=== PATIENT | male | born 1955 ===

== ENCOUNTER 2017-06-30 13:49 | Emergency (ER) | payer OTHER ==
[2017-06-30 13:49] VITALS: BMI 25.0
[2017-06-30 14:12] VITALS: BP 148/82; PULSE 76; RESP 18; TEMP 98.4; O2SAT 100
--- NOTE | 2017-06-30 14:44 | ED PDOC ---
HPI: General Adult Time Seen by Provider: 06/30/17 14:10 Chief Complaint (Nursing): Abnormal Skin Integrity Chief Complaint (Provider): Abnormal skin integrity History Per: Family History/Exam Limitations: language barrier Onset/Duration Of Symptoms: Days (x7-8days) Current Symptoms Are (Timing): Still Present Additional Complaint(s): Deven Hurst presents to the ED accompanied by his for chief complaints of papular lesions diffused to the body. Patients reports she and were traveling to [place] and the [facility] for 7-8 days and lesions spread throughout the body. States patient had 1 before leaving to travel and it got worse during the course of the trip. Associated symptoms include itching of the skin and eyes, along with some back pain, has since resolved. Denies any fever, chills, body aches, vomiting, urinary symptoms, or pain. Of note, patient has a surgical history of a kidney transplant and reports he takes Prednisone for the kidneys and took Benadryl to help with the eyes. PMD: Dr. Juan Daniel Walker. Past Medical History Reviewed: Historical Data, Nursing Documentation, Vital Signs Vital Signs: Last Vital Signs Temp 98.4 F 06/30/17 14:08 Pulse 76 06/30/17 14:08 Resp 18 06/30/17 14:08 BP 148/82 06/30/17 14:08 Pulse Ox 100 06/30/17 15:01 - Medical History PMH: Diabetes, HTN, Hypercholesterolemia, Hyperlipidemia, Pancreatitis, Chronic Kidney Disease (Renal Implant ) Denies: Arthritis, HIV, Rheumatoid Arthritis - Surgical History Surgical History: Cholecystectomy Other surgeries: Kidney transplant. - Family History Family History: States: Unknown Family Hx - Living Arrangements Living Arrangements: With Family - Immunization History Hx Influenza Vaccination: Yes Hx Pneumococcal Vaccination: Yes - Home Medications Home Medications: Ambulatory Orders Medication Instructions Recorded B Complex W-C No.20/Folic Acid 1 cap PO DAILY 09/28/14 [Renal Caps Softgel] Calcium Acetate [Phoslo] 667 mg PO TID 09/28/14 Carvedilol [Coreg] 6.25 mg PO BID 09/28/14 Ergocalciferol 50,000 unit PO Q30D 09/28/14 Insulin Glargine,Hum.rec.anlog 30 unit SC DAILY 09/28/14 [Lantus] Linagliptin [Tradjenta] 5 mg PO DAILY 09/28/14 Lipase/Protease/Amylase [Creon Dr 1 tab PO TID 09/28/14 24,000 Units Capsule] [id number] Ethyl Esters [Lovaza] 1 gm PO BID 09/28/14 Omeprazole 40 mg PO DAILY 09/28/14 Pregabalin [Lyrica] 100 mg PO TID 09/28/14 Sevelamer Carbonate [Renvela] 3 tab PO TID 09/28/14 Simvastatin 40 mg PO HS 09/28/14 ALPRAZolam [Xanax] 1 mg PO TID 04/12/15 Codeine Phosphate/Promethazi 5 ml PO Q6 #80 ml 04/12/15 [Promethazine with Codeine 10 mg/5 ml-6.25 mg/] Guaifenesin/Pseudoephedrne HCl 1 tab PO DAILY PRN #30 ter 04/12/15 [Mucinex D ER Tablet] Loperamide Hydrochloride 25 mg PO DAILY 04/12/15 [Loperamide HCl] Mupirocin [Centany] 2 unit TP BID #30 gm 06/30/17 - Allergies Allergies/Adverse Reactions: Allergies Allergy/AdvReac Type Severity Reaction Status Date / Time No Known Allergies Allergy Verified 07/11/16 11:22 Review of Systems ROS Statement: Except As Marked, All Systems Reviewed And Found Negative Constitutional: Negative for: Fever, Chills Eyes: Negative for: Pain Gastrointestinal: Negative for: Vomiting Genitourinary Male: Negative for: Other (No Urinary symptoms.) Musculoskeletal: Positive for: Back Pain (Has since resolved.) Skin: Positive for: Lesions (Papular lesions) Physical Exam - Reviewed Nursing Documentation Reviewed: Yes Vital Signs Reviewed: Yes - Physical Exam Appears: Positive for: Well, Non-toxic, No Acute Distress Head Exam: Positive for: ATRAUMATIC, NORMAL INSPECTION, NORMOCEPHALIC Skin: Positive for: Normal Color (Individual like papular lesions with central punctars. 1-2 lesions looks infected with surrounding erythema.), Warm, Dry Eye Exam: Positive for: Normal appearance ENT: Positive for: Normal ENT Inspection Neck: Positive for: Normal Cardiovascular/Chest: Positive for: Regular Rate, Rhythm Respiratory: Positive for: Normal Breath Sounds Gastrointestinal/Abdominal: Positive for: Normal Exam Back: Positive for: Normal Inspection Rectal: Positive for: Deferred Extremity: Positive for: Normal ROM. Negative for: Swelling (No swelling.) Lymphatic: Positive for: Deferred Neurologic/Psych: Positive for: Alert, Oriented - ECG O2 Sat by Pulse Oximetry: 100 (RA) Pulse Ox Interpretation: Normal Medical Decision Making Medical Decision Makin: Initial Impression: Papular lesions diffused to the body. Initial Plan: * Skin cream- spot treatment Scribe Attestation: Documented by Yon Sinha acting as a scribe for Sepideh Greenberg PA-C. Provider Scribe Attestation: All medical record entries made by the Scribe were at my direction and personally dictated by me. I have reviewed the chart and agree that the record accurately reflects my personal performance of the history, physical exam, medical decision making, and the department course for this patient. I have also personally directed, reviewed, and agree with the discharge instructions and disposition. Time Disposition - Clinical Impression Clinical Impression: Dermatitis - Patient ED Disposition Is Patient to be Admitted: No Counseled Patient/Family Regarding: Need For Followup - Disposition Disposition: Routine/Home Disposition Time: 13:20 Condition: STABLE Prescriptions: Mupirocin [Centany] 2 unit TP BID #30 gm Instructions: Contact Dermatitis (ED) Forms: [employer] (Azeri)
== END 2017-06-30 15:04 | disposition home or self-care (01) ==
LOC: H.ER 13:49
DX: L50.0 Allergic urticaria (principal)

== ENCOUNTER 2017-12-24 15:46 | Observation (INO) | payer OTHER ==
[2017-12-24 15:46] VITALS: BMI 25.0
[2017-12-24] MEDS ORDERED: Sodium Chloride 0.9% 1,000 ML IV STA ×2 (16:38→17:16)
--- NOTE | 2017-12-24 17:11 | RAD ---
HISTORY: chest pain/ r/o infiltrate COMPARISON: 04/12/2015 TECHNIQUE: Chest PA and lateral FINDINGS: LUNGS: No active pulmonary disease. PLEURA: No significant pleural effusion identified. No pneumothorax apparent. CARDIOVASCULAR: No radiographic findings to suggest acute or significant cardiovascular disease. OSSEOUS STRUCTURES: No significant abnormalities. VISUALIZED UPPER ABDOMEN: Normal. OTHER FINDINGS: None. IMPRESSION: No active disease. No significant interval change compared to the prior examination(s).
--- NOTE | 2017-12-24 17:15 | ED PDOC ---
HPI: General Adult Time Seen by Provider: 12/24/17 16:25 Chief Complaint (Nursing): Flu-like Symptoms Chief Complaint (Provider): fever, cough, malaise History Per: Patient History/Exam Limitations: no limitations Current Symptoms Are (Timing): Still Present Severity: Moderate Recently: Treated By A Physician Additional Complaint(s): 62yo male hx renal transplant presents c/o malaise, fever, cough, headache, body aches. Denies syncope, chest pain, hemoptysis or urinary symptoms. States compliance w medications including tacrolimus for transplant rejection. Past Medical History Reviewed: Historical Data, Nursing Documentation, Vital Signs Vital Signs: Last Vital Signs Temp 98.4 F 12/24/17 16:06 Pulse 78 12/24/17 16:06 Resp 17 12/24/17 16:06 BP 141/74 12/24/17 16:06 Pulse Ox 95 12/24/17 19:45 - Medical History PMH: Diabetes, HTN, Hypercholesterolemia, Hyperlipidemia, Pancreatitis, Chronic Kidney Disease (Renal Implant 2015) Denies: Arthritis, HIV, Rheumatoid Arthritis - Surgical History Surgical History: Cholecystectomy - Family History Family History: States: Unknown Family Hx - Living Arrangements Living Arrangements: With Family - Social History Current smoker - smoking cessation education provided: No - Immunization History Hx Influenza Vaccination: Yes Hx Pneumococcal Vaccination: Yes - Home Medications Home Medications: Ambulatory Orders Medication Instructions Recorded B Complex W-C No.20/Folic Acid 1 cap PO DAILY 09/28/14 [Renal Caps Softgel] Calcium Acetate [Phoslo] 667 mg PO TID 09/28/14 Carvedilol [Coreg] 6.25 mg PO BID 09/28/14 Ergocalciferol 50,000 unit PO Q30D 09/28/14 Insulin Glargine,Hum.rec.anlog 30 unit SC DAILY 09/28/14 [Lantus] Linagliptin [Tradjenta] 5 mg PO DAILY 09/28/14 Lipase/Protease/Amylase [Creon Dr 1 tab PO TID 09/28/14 24,000 Units Capsule] [id number] Ethyl Esters [Lovaza] 1 gm PO BID 09/28/14 Omeprazole 40 mg PO DAILY 09/28/14 Pregabalin [Lyrica] 100 mg PO TID 09/28/14 Sevelamer Carbonate [Renvela] 3 tab PO TID 09/28/14 Simvastatin 40 mg PO HS 09/28/14 ALPRAZolam [Xanax] 1 mg PO TID 04/12/15 Codeine Phosphate/Promethazi 5 ml PO Q6 #80 ml 04/12/15 [Promethazine with Codeine 10 mg/5 ml-6.25 mg/] Guaifenesin/Pseudoephedrne HCl 1 tab PO DAILY PRN #30 ter 04/12/15 [Mucinex D ER Tablet] Loperamide Hydrochloride 25 mg PO DAILY 04/12/15 [Loperamide HCl] Mupirocin [Centany] 2 unit TP BID #30 gm 06/30/17 - Allergies Allergies/Adverse Reactions: Allergies Allergy/AdvReac Type Severity Reaction Status Date / Time No Known Allergies Allergy Verified 12/24/17 16:06 Review of Systems ROS Statement: Except As Marked, All Systems Reviewed And Found Negative Constitutional: Positive for: Fever, Chills, Weakness, Malaise Eyes: Negative for: Vision Change ENT: Positive for: Throat Pain. Negative for: Throat Swelling Cardiovascular: Negative for: Chest Pain Respiratory: Positive for: Cough. Negative for: Shortness of Breath, Sputum, Wheezing Gastrointestinal: Negative for: Nausea, Abdominal Pain Genitourinary Male: Negative for: Dysuria Musculoskeletal: Positive for: Other (myalgia). Negative for: Neck Pain Skin: Negative for: Rash, Lesions Neurological: Positive for: Headache. Negative for: Weakness Psych: Negative for: Suicidal ideation Physical Exam - Reviewed Nursing Documentation Reviewed: Yes Vital Signs Reviewed: Yes - Physical Exam Appears: Positive for: Non-toxic, Uncomfortable Head Exam: Positive for: ATRAUMATIC, NORMAL INSPECTION, NORMOCEPHALIC Skin: Positive for: Normal Color, Warm, DRY Eye Exam: Positive for: EOMI, Normal appearance, PERRL ENT: Positive for: Normal ENT Inspection Neck: Positive for: Normal, Painless ROM Cardiovascular/Chest: Positive for: Regular Rate, Rhythm Respiratory: Positive for: CNT, Normal Breath Sounds Gastrointestinal/Abdominal: Positive for: Normal Exam, Bowel Sounds, Soft. Negative for: Tenderness Back: Positive for: Normal Inspection Extremity: Positive for: Normal ROM Neurologic/Psych: Positive for: Alert, Oriented. 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, mild elev BUN flu neg WBC normal tamiflu started empirically given symptoms and immuno-compromised w renal transplant EKG mildly peaked T waves, kayexalate and insulin/gluc initiated IVF bolus ordered Admit Dr Lea covering Dr Walker Disposition - Clinical Impression Clinical Impression: Influenza-like symptoms, Hyperkalemia, Renal transplant recipient - Patient ED Disposition Is Patient to be Admitted: Yes Counseled Patient/Family Regarding: Studies Performed, Diagnosis, Need For Followup - Disposition Disposition Time: 18:00 Condition: FAIR Forms: [employer] (Yoruba) - Pt Status Changed To: Hospital Disposition Of: Observation - POA Present On Arrival: None
[2017-12-24 17:23] LABS: BASO % 0.4 % (0.0-2.0); EOS % 0.2 % (0.0-4.0); HEMOGLOBIN 13.8 g/dL (12.0-18.0); LYMPH # 0.8 K/uL (1.0-4.3); LYMPH % 13.7 % (20.0-40.0); MEAN CELL VOLUME 97.2 fl (80.0-94.0); MEAN CORPUSCULAR HEMOGLOBIN 31.1 pg (27.0-31.0); MEAN PLATELET VOLUME 10.4 fl (7.2-11.7); MONO # 0.7 K/uL (0.0-0.8); MONO % 11.6 % (0.0-10.0); NEUT # 4.2 K/uL (1.8-7.0); NEUT % 74.1 % (50.0-75.0); NRBC % 0.1 % (0.0-0.0); RBC 4.45 Mil/uL (4.40-5.90); RED CELL DISTRIBUTION WIDTH 14.1 % (11.5-14.5); WHITE BLOOD COUNT 5.7 K/uL (4.8-10.8)
[2017-12-24 17:58] LABS: ALB/GLOB RATIO 1.2 (1.0-2.1); ALBUMIN 3.8 g/dL (3.5-5.0); ALT/SGPT 42 U/L (21-72); AST/SGOT 31 U/L (17-59); BLOOD UREA NITROGEN 22 mg/dl (9-20); CALCIUM 8.9 mg/dL (8.4-10.2); GFR AFRICAN-AMERICAN > 60; GFR NON-AFRICAN AMERICAN 56
[2017-12-24] MEDS ORDERED: Sod Polystyrene Sulf 15 gm/60 ml Susp PO ONE (18:56)
[2017-12-24] MEDS ORDERED: Dextrose 50% SYRINGE Inj (50 ml) IVP ONE (18:56)
[2017-12-24] MEDS ORDERED: Insulin Regular 100 units/ml ONE (19:51)
[2017-12-24] MEDS ORDERED: Dextrose 50% SYRINGE Inj (50 ml) ONE (19:52)
[2017-12-24] MEDS ORDERED: Sod Polystyrene Sulf 15 gm/60 ml Susp ONE (19:52)
--- NOTE | 2017-12-24 20:40 | CP.PCM.HP ---
History of Present Illness - History of Present Illness History of Present Illness: CC: fever, malaise; found to have elevated K HPI: This is a 62 y/o male with MHx significant for HTN, DM2, HLD, chronic pancreatitis, and s/p renal transplant on immunosuppressive medications ( Tacrolimus, Mycophenolate, and prednisone) who comes in with 1-2 days of fever, cough, HERRING, myalgias and malaise. Fever > 100.4. Denies any CP, SOB. Denies urinary symptoms or changes in urine production. Nothing has made symptoms better or worse. Patient has been taking all immunosuppressive medications. Transplant cancer researcher is at [place] ROS: 14 systems reviewed, negative other than HPI MHx: DM2, HTN, HLD, Pancreatitis, s/p renal t/p in 2016 SHx: Renal transplant, Hernia surgery, GB surgery, Pancreas procedure Allergies: NKDA Medications: Pending Family Hx: Patient unable to provide any relevant family Hx Social Hx: LIves with family, no tobacco, no EtOH Surrogate Dec Mkr: Present on Admission - Present on Admission Any Indicators Present on Admission: No Past Patient History - Infectious Disease Hx of Infectious Diseases: None - Past Medical History & Family History Past Medical History?: Yes - Past Social History Smoking Status: Never Smoked - CARDIAC Hx Hypercholesterolemia: Yes Hx Hypertension: Yes - PULMONARY Hx Respiratory Disorders: Yes Hx Tuberculosis: Yes (latent TB) - NEUROLOGICAL HX Cerebrovascular Accident: No - HEENT Hx HEENT Problems: No - RENAL Hx Chronic Kidney Disease: Yes (Renal Implant 2015) - ENDOCRINE/METABOLIC Hx Endocrine Disorders: Yes Hx Diabetes Mellitus Type 2: Yes - HEMATOLOGICAL/ONCOLOGICAL Hx Human Immunodeficiency Virus (HIV): No - INTEGUMENTARY Hx Dermatological Problems: No - MUSCULOSKELETAL/RHEUMATOLOGICAL Hx Arthritis: No Hx Rheumatoid Arthritis: No - GASTROINTESTINAL Hx Pancreatitis: Yes - GENITOURINARY/GYNECOLOGICAL Hx Genitourinary Disorders: No - PSYCHIATRIC Hx Psychophysiologic Disorder: No Hx Substance Use: No - SURGICAL HISTORY Hx Cholecystectomy: Yes - ANESTHESIA Hx Anesthesia: Yes Hx Anesthesia Reactions: No Hx Malignant Hyperthermia: No Meds Allergies/Adverse Reactions: Allergies Allergy/AdvReac Type Severity Reaction Status Date / Time No Known Allergies Allergy Verified 12/24/17 16:06 Physical Exam - Constitutional Additional comments: appears ill - Head Exam Head Exam: ATRAUMATIC, NORMOCEPHALIC - Eye Exam Eye Exam: EOMI, PERRL - ENT Exam ENT Exam: Mucous Membranes Dry - Neck Exam Neck exam: Positive for: Full Rom - Respiratory Exam Respiratory Exam: Clear to Auscultation Bilateral, NORMAL BREATHING PATTERN - Cardiovascular Exam Cardiovascular Exam: REGULAR RHYTHM, +S1, +S2 - GI/Abdominal Exam GI & Abdominal Exam: Normal Bowel Sounds, Soft - Extremities Exam Extremities exam: Positive for: full ROM, normal inspection - Neurological Exam Neurological exam: Alert, CN II-XII Intact, Oriented x3 - Psychiatric Exam Psychiatric exam: Normal Affect, Normal Mood - Skin Skin Exam: Dry, Warm Results - Vital Signs Recent Vital Signs: Last Vital Signs Temp 98.4 F 12/24/17 16:06 Pulse 78 12/24/17 16:06 Resp 17 12/24/17 16:06 BP 141/74 12/24/17 16:06 Pulse Ox 95 12/24/17 19:54 - Labs Result Diagrams: 12/24/17 17:19 12/24/17 17:19 Labs: Laboratory Results - last 24 hr 12/24/17 12/24/17 12/24/17 16:31 17:19 17:19 WBC 5.7 RBC 4.45 Hgb 13.8 Hct 43.2 MCV 97.2 H MCH 31.1 H MCHC 32.0 L RDW 14.1 Plt Count 107 L MPV 10.4 Neut % (Auto) 74.1 Lymph % (Auto) 13.7 L [place] % (Auto) 11.6 H Eos % (Auto) 0.2 Baso % (Auto) 0.4 Neut # (Auto) 4.2 Lymph # (Auto) 0.8 L [place] # (Auto) 0.7 Eos # (Auto) 0.0 Baso # (Auto) 0.0 Sodium 139 Potassium 5.9 H Chloride 106 Carbon Dioxide 24 Anion Gap 15 BUN 22 H Creatinine 1.3 Est GFR ( Amer) > 60 Est GFR (Non-Af Amer) 56 POC Glucose (mg/dL) Random Glucose 231 H Calcium 8.9 Total Bilirubin 0.7 AST 31 ALT 42 Alkaline Phosphatase 84 Total Creatine Kinase Total Protein 6.8 Albumin 3.8 Globulin 3.1 Albumin/Globulin Ratio 1.2 Influenza Typ A,B (EIA) Negative for flu a/b 12/24/17 12/24/17 18:41 19:29 WBC RBC Hgb Hct MCV MCH MCHC RDW Plt Count MPV Neut % (Auto) Lymph % (Auto) [place] % (Auto) Eos % (Auto) Baso % (Auto) Neut # (Auto) Lymph # (Auto) [place] # (Auto) Eos # (Auto) Baso # (Auto) Sodium Potassium Chloride Carbon Dioxide Anion Gap BUN Creatinine Est GFR ( Amer) Est GFR (Non-Af Amer) POC Glucose (mg/dL) 137 H Random Glucose Calcium Total Bilirubin AST ALT Alkaline Phosphatase Total Creatine Kinase 46 L Total Protein Albumin Globulin Albumin/Globulin Ratio Influenza Typ A,B (EIA) - EKG Data EKG Interpreted by: Myself EKG shows normal: Sinus rhythm Rate: Normal - EKG Data EKG comments: EKG does show T waves that appear somewhat peaked - Imaging and Cardiology Chest x-ray Status: Image reviewed by me (no acute findings) Assessment & Plan (1) Hyperkalemia Assessment and Plan: 62 y/o male with multiple medical conditions presenting with flu and hyper-K in setting of being renal t/p patient. 1) Hyper K -- currently renal function appears stable; received Hyper K cocktail -Repeat BMP at MN -Repeat EKG in AM -Continue IVF 2) Influenza -- continue tamiflu 75 PO BID 3) DM2 -- ACHS accucheck, SSI, DM diet; resume home medications if patient tolerating PO 4) Renal t/p -- continue tacroliumus, mycophenolate, prednisone 5) Pancreatitis -- continue Creon supplements 6) DVT PPx -- SCDs for now Status: Acute Priority: High (2) Influenza Status: Acute (3) Renal transplant recipient Status: Acute (4) DVT prophylaxis Status: Acute
[2017-12-24] MEDS ORDERED: Sodium Chloride 0.9% 1,000 ML IV SCH (20:45)
[2017-12-24] MEDS: Insulin Regular 100 units/ml SC SCH (23:35)
[2017-12-25 01:11] LABS: BLOOD UREA NITROGEN 14 mg/dl (9-20); CALCIUM 8.6 mg/dL (8.4-10.2); GFR AFRICAN-AMERICAN > 60; GFR NON-AFRICAN AMERICAN > 60
[2017-12-25] MEDS ORDERED: Pneumococcal 23-Valent Vaccine IM ONE (02:12)
[2017-12-25] MEDS ORDERED: Influenza Vaccine 18yr & older 0.5 ML/45 MCG SYR IM ONE (02:19)
[2017-12-25 05:57] LABS: MEAN CELL VOLUME 96.2 fl (80.0-94.0); MEAN CORPUSCULAR HEMOGLOBIN 31.5 pg (27.0-31.0); MEAN CORPUSCULAR HGB CONC 32.7 g/dL (33.0-37.0); RBC 4.45 Mil/uL (4.40-5.90); RED CELL DISTRIBUTION WIDTH 14.2 % (11.5-14.5); WHITE BLOOD COUNT 4.8 K/uL (4.8-10.8)
[2017-12-25 06:03] LABS: BLOOD UREA NITROGEN 13 mg/dl (9-20); CALCIUM 8.6 mg/dL (8.4-10.2); GFR AFRICAN-AMERICAN > 60; GFR NON-AFRICAN AMERICAN > 60
[2017-12-25] MEDS: Insulin Regular 100 units/ml SC SCH ×2 (06:41→13:49)
[2017-12-25] MEDS ORDERED: Insulin Regular 100 units/ml SC SCH (07:30)
[2017-12-25] MEDS ORDERED: Pantoprazole 40 mg EC Tab PO SCH (09:00)
[2017-12-25] MEDS ORDERED: Ergocalciferol 50,000 Intl Units Cap PO SCH (09:00)
--- NOTE | 2017-12-25 10:04 | CARD ---
APPROVED REPORT EKG Measurement Heart [id number] <Conclusion> Normal sinus rhythm Normal ECG
[2017-12-25] MEDS ORDERED: AMYLASE PO SCH (12:00)
[2017-12-25] MEDS ORDERED: PROTEASE PO SCH (12:00)
[2017-12-25] MEDS ORDERED: LIPASE PO SCH (12:00)
[2017-12-25 15:45] VITALS: BP 137/74; PULSE 67; RESP 18; TEMP 99.4; O2SAT 94
--- NOTE | 2017-12-25 19:01 | CP.PCM.DIS ---
Provider - Provider Date of Admission: 12/24/17 19:33 Attending physician: Yuriy Lea MD Time Spent in preparation of Discharge (in minutes): 15 Hospital Course - Lab Results Lab Results: Most Recent Lab Values WBC 4.8 K/uL (4.8-10.8) 12/25/17 04:25 RBC 4.45 Mil/uL (4.40-5.90) 12/25/17 04:25 Hgb 14.0 g/dL (12.0-18.0) 12/25/17 04:25 Hct 42.8 % (35.0-51.0) 12/25/17 04:25 MCV 96.2 fl (80.0-94.0) H 12/25/17 04:25 MCH 31.5 pg (27.0-31.0) H 12/25/17 04:25 MCHC 32.7 g/dL (33.0-37.0) L 12/25/17 04:25 RDW 14.2 % (11.5-14.5) 12/25/17 04:25 Plt Count 102 K/uL (130-400) L 12/25/17 04:25 MPV 10.4 fl (7.2-11.7) 12/24/17 17:19 Neut % (Auto) 74.1 % (50.0-75.0) 12/24/17 17:19 Lymph % (Auto) 13.7 % (20.0-40.0) L 12/24/17 17:19 [place] % (Auto) 11.6 % (0.0-10.0) H 12/24/17 17:19 Eos % (Auto) 0.2 % (0.0-4.0) 12/24/17 17:19 Baso % (Auto) 0.4 % (0.0-2.0) 12/24/17 17:19 Neut # (Auto) 4.2 K/uL (1.8-7.0) 12/24/17 17:19 Lymph # (Auto) 0.8 K/uL (1.0-4.3) L 12/24/17 17:19 [place] # (Auto) 0.7 K/uL (0.0-0.8) 12/24/17 17:19 Eos # (Auto) 0.0 K/uL (0.0-0.7) 12/24/17 17:19 Baso # (Auto) 0.0 K/uL (0.0-0.2) 12/24/17 17:19 Sodium 142 mmol/l (132-148) 12/25/17 04:25 Potassium 4.8 MMOL/L (3.6-5.0) 12/25/17 04:25 Chloride 106 mmol/L (98-107) 12/25/17 04:25 Carbon Dioxide 26 mmol/L (22-30) 12/25/17 04:25 Anion Gap 15 (10-20) 12/25/17 04:25 BUN 13 mg/dl (9-20) 12/25/17 04:25 Creatinine 1.0 mg/dl (0.8-1.5) 12/25/17 04:25 Est GFR ( Amer) > 60 12/25/17 04:25 Est GFR (Non-Af Amer) > 60 12/25/17 04:25 POC Glucose (mg/dL) 205 mg/dL (65-110) H 12/25/17 16:14 Random Glucose 273 mg/dL (75-110) H 12/25/17 04:25 Calcium 8.6 mg/dL (8.4-10.2) 12/25/17 04:25 Total Bilirubin 0.7 mg/dl (0.2-1.3) 12/24/17 17:19 AST 31 U/L (17-59) 12/24/17 17:19 ALT 42 U/L (21-72) 12/24/17 17:19 Alkaline Phosphatase 84 U/L (38-126) 12/24/17 17:19 Total Creatine Kinase 46 U/L (55-170) L 12/24/17 18:41 Total Protein 6.8 G/DL (6.3-8.2) 12/24/17 17:19 Albumin 3.8 g/dL (3.5-5.0) 12/24/17 17:19 Globulin 3.1 gm/dL (2.2-3.9) 12/24/17 17:19 Albumin/Globulin Ratio 1.2 (1.0-2.1) 12/24/17 17:19 Influenza Typ A,B (EIA) Negative for flu a/b (NEGATIVE) 12/24/17 16:31 - Hospital Course Hospital Course: 62 y/o male with PMHx significant for HTN, DM2, HLD, chronic pancreatitis, and s/p renal transplant on immunosuppressive medications (Tacrolimus, Mycophenolate , and prednisone) came in with 1-2 days of fever, cough, HERRING, myalgias and malaise. Fever > 100.4. Denies any CP, SOB. Denies urinary symptoms or changes in urine production. Nothing has made symptoms better or worse. Patient has been taking all immunosuppressive medications. his blood work up showed K 5.9 BUN 22. he wsa placed under observation for hyperkalemia and dehydration . Was started empirically on tamiflu influenza test was reported as negative He remained clinically stable, afebrile for 24 hours , normal WBC His repeat BMP showed normal BUn/Cr and K Will discharge patient home with follow up with PMD and kidney doctor resume home meds DX 1.Hyper K--unclear etiology currently renal function appears stable; received Hyper K cocktail -Repeat BMP showed normal renal function and K follow up with his renal doctor 2.Viral illness-- Influenza test wa snegative .d/c tamiflu Continue symptomatoic relief at home with tylenol for fever 3.DM2 -- labile DM diet; resume home medications 4. Renal transplant -- continue tacroliumus, mycophenolate, prednisone 5.Chronic Pancreatitis -stable continue Creon supplements 6. Thrombocytopenia unclear etiology Plt 100 K, stable follow up with PMD Discharge Exam - Head Exam Head Exam: ATRAUMATIC, NORMOCEPHALIC - Eye Exam Eye Exam: EOMI, Normal appearance, PERRL Pupil Exam: NORMAL ACCOMODATION - ENT Exam ENT Exam: Mucous Membranes Moist, Normal Exam - Neck Exam Neck exam: Full Rom, Normal Inspection - Respiratory Exam Respiratory Exam: Clear to PA & Lateral, NORMAL BREATHING PATTERN. absent: Rhonchi, Wheezes - Cardiovascular Exam Cardiovascular Exam: REGULAR RHYTHM, RRR, +S1, +S2. absent: JVD - GI/Abdominal Exam GI & Abdominal Exam: Normal Bowel Sounds, Soft. absent: Distended, Guarding, Rebound, Tenderness - Rectal Exam Rectal Exam: Deferred - Extremities Exam Extremities exam: normal capillary refill, normal inspection, pedal pulses present - Back Exam Back exam: NORMAL INSPECTION - Neurological Exam Neurological exam: Alert, CN II-XII Intact, Oriented x3, Reflexes Normal - Psychiatric Exam Psychiatric exam: Normal Affect, Normal Mood - Skin Skin Exam: Dry, Intact, Normal Color, Warm Discharge Plan - Follow Up Plan Condition: STABLE Disposition: HOME/ ROUTINE Patient education suggested?: Yes Instructions: Influenza (DC) Additional Instructions: follow up with in 1 week Referrals: Juan Daniel Walker MD [Family Provider] -
[2017-12-25] MEDS ORDERED: [UNRECOGNIZED DRUG - OTHER] PO SCH (22:00)
== END 2017-12-25 16:00 | disposition home or self-care (01) ==
LOC: H.ER 15:46 → H.ERHOLD 19:33 → H.TEL 12-25 01:19
PROVIDERS: ADMIT Internal Medicine; ATTEND Internal Medicine
DX: E87.5 Hyperkalemia (principal); I12.9 Hypertensive chronic kidney disease with stage 1 through stage 4 chronic kidney disease, or unspecified chronic kidney disease; J11.1 Influenza due to unidentified influenza virus with other respiratory manifestations; E86.0 Dehydration; K86.1 Other chronic pancreatitis; N18.9 Chronic kidney disease, unspecified; Z86.11 Personal history of tuberculosis; Z90.49 Acquired absence of other specified parts of digestive tract; Z94.0 Kidney transplant status; E78.5 Hyperlipidemia, unspecified; R76.11 Nonspecific reaction to tuberculin skin test without active tuberculosis; D69.6 Thrombocytopenia, unspecified; E11.22 Type 2 diabetes mellitus with diabetic chronic kidney disease; E78.00 Pure hypercholesterolemia, unspecified; Z23 Encounter for immunization
CPT/HCPCS: 71046; 80048; 80053; 82550; 82948; 85025; 85027; 87804; 90471; 90472; 90732; 93005; 96372; 96374; 99285; G0378; J7040; J7507; Q2035

== ENCOUNTER 2019-01-20 14:34 | Emergency (ER) | payer MEDICARE, OTHER ==
[2019-01-20 14:35] VITALS: BMI 25.0
[2019-01-20 15:23] VITALS: RESP 18
--- NOTE | 2019-01-20 17:13 | ED PDOC ---
HPI: CCC, URI, Sore Throat Time Seen by Provider: 01/20/19 16:24 Chief Complaint (Nursing): Cough, Cold, Congestion Chief Complaint (Provider): Cough, congestion History Per: Patient History/Exam Limitations: no limitations Have you had recent travel within the past 21 days to any of the following countries: [place], [place], [place] or [place]?: No Onset/Duration Of Symptoms: Days (3) Current Symptoms Are (Timing): Still Present Associated Symptoms: Cough, Nasal Congestion Additional History Per: Patient Additional Complaint(s): 63yo male, history of esophageal cancer, last chemotherapy 2 months ago and currently in remission, comes to ER reporting complaints of cough and congestion x 3 days. He also reports mild mid-sternal chest pain after coughing. Otherwise, no fever, chills, nausea, vomiting. Patient has a g-tube in place, denies any complaints regarding that as well. PMD: Juan Daniel Walker I Past Medical History Reviewed: Historical Data, Nursing Documentation, Vital Signs Vital Signs: Last Vital Signs Temp 99.1 F 01/20/19 15:19 Pulse 110 H 01/20/19 15:19 Resp 18 01/20/19 15:19 BP 125/72 01/20/19 15:19 Pulse Ox 100 01/20/19 15:19 - Medical History PMH: Diabetes, HTN, Hypercholesterolemia, Hyperlipidemia, Pancreatitis, Chronic Kidney Disease (Renal Implant 2015) Denies: Arthritis, HIV, Rheumatoid Arthritis - Surgical History Surgical History: Cholecystectomy Other surgeries: g-tube - Family History Family History: States: No Known Family Hx - Immunization History Hx Influenza Vaccination: Yes Hx Pneumococcal Vaccination: Yes - Home Medications Home Medications: Ambulatory Orders Medication Instructions Recorded Cholecalciferol [Vitamin D 1000 IU] 50,000 iu PO DAILY 12/24/17 Fludrocortisone Acetate 0.1 mg PO DAILY 12/24/17 Lipase/Protease/Amylase [Creon Dr 2 each PO HS 12/24/17 24,000 Units Capsule] Pantoprazole [Protonix EC Tab] 40 mg PO DAILY 12/24/17 Pregabalin [Lyrica] 100 mg PO Q8 12/24/17 Simethicone [Gas-X] 125 mg PO DAILY 12/24/17 Tacrolimus [Prograf Cap] 1 mg PO Q12 12/24/17 Tamsulosin HCl [Flomax] 0.4 mg PO DAILY 12/24/17 Triamcinolone 0.1% [Triamcinolone 0.1 drp TP BID 12/24/17 0.1% Cream] Azithromycin [Z-Juan Manuel] 250 mg PO DAILY #6 tab 01/20/19 - Allergies Allergies/Adverse Reactions: Allergies Allergy/AdvReac Type Severity Reaction Status Date / Time No Known Allergies Allergy Verified 12/24/17 16:06 Review of Systems ROS Statement: Except As Marked, All Systems Reviewed And Found Negative Constitutional: Negative for: Fever, Chills ENT: Positive for: Nose Congestion Cardiovascular: Positive for: Chest Pain (mild pain after cough) Respiratory: Positive for: Cough Gastrointestinal: Negative for: Nausea, Vomiting Physical Exam - Reviewed Nursing Documentation Reviewed: Yes Vital Signs Reviewed: Yes - Physical Exam Appears: Positive for: Non-toxic (patient mildly cachectic) Head Exam: Positive for: ATRAUMATIC, NORMAL INSPECTION, NORMOCEPHALIC Skin: Positive for: Normal Color Eye Exam: Positive for: EOMI, PERRL Neck: Positive for: Normal, Supple Cardiovascular/Chest: Positive for: Regular Rate, Rhythm, Chest Non Tender Respiratory: Positive for: Normal Breath Sounds. Negative for: Wheezing, Respiratory Distress Gastrointestinal/Abdominal: Positive for: Soft, Other (g-tube in place, no signs of erythema or leakage). Negative for: Tenderness Back: Positive for: Normal Inspection Extremity: Positive for: Normal ROM. Negative for: Pedal Edema Neurological/Psych: Positive for: Awake, Alert, Oriented (x 3) - Laboratory Results Result Diagrams: 01/20/19 17:12 01/20/19 17:12 - ECG O2 Sat by Pulse Oximetry: 100 (RA) Pulse Ox Interpretation: Normal Medical Decision Making Medical Decision Making: Workup for pneumonia vs. cardiac etiology of chest pain Plan: -- labs -- CXR -- Rapid flu -- VBG 1999 Pt with normal labs and unremarkable EKG and CXR. Pt feeling improved. Pt to be discharged with rx for Azithromycin and will follow up with Dr. Walker tomorrow. Return parameters discussed. Scribe Attestation: Documented by Penelope Youngblood acting as a scribe for Lena Frederick MD. Provider Attestation: All medical record entries made by the Scribe were at my direction and personally dictated by me. I have reviewed the chart and agree that the record accurately reflects my personal performance of the history, physical exam, medical decision making, and the department course for this patient. I have also personally directed, reviewed, and agree with the discharge instructions and disposition. Disposition - Clinical Impression Clinical Impression: Cough, Chest congestion - Disposition Referrals: Juan Daniel Walker MD [Family Provider] - Disposition: Routine/Home Disposition Time: 20:00 Condition: IMPROVED Prescriptions: Azithromycin [Z-Juan Manuel] 250 mg PO DAILY #6 tab Instructions: Acute Bronchitis, Adult (DC), Cough, Adult (DC) Forms: [facility] (Amharic), [facility] (Greek) Print Language: SLOVAK
[2019-01-20 17:18] LABS: VENOUS BLOOD GAS BASE EXCESS 1.7 mmol/L (0.0-2.0); VENOUS BLOOD GAS PCO2 51 mmHg (40-60); VENOUS BLOOD GAS PO2 26 mm/Hg (30-55); VENOUS BLOOD PH 7.35 (7.32-7.43)
[2019-01-20 17:30] LABS: BASO % 0.3 % (0.0-2.0); EOS % 0.3 % (0.0-4.0); HEMOGLOBIN 11.2 g/dL (12.0-18.0); LYMPH # 0.3 K/uL (1.0-4.3); LYMPH % 15.7 % (20.0-40.0); MEAN CELL VOLUME 101.4 fl (80.0-94.0); MEAN CORPUSCULAR HEMOGLOBIN 33.5 pg (27.0-31.0); MEAN PLATELET VOLUME 9.7 fl (7.2-11.7); MONO # 0.5 K/uL (0.0-0.8); MONO % 23.6 % (0.0-10.0); NEUT # 1.3 K/uL (1.8-7.0); NEUT % 60.1 % (50.0-75.0); NRBC % 0.1 % (0.0-0.0); PLATELET COUNT 174 K/uL (130-400); RBC 3.34 Mil/uL (4.40-5.90); RED CELL DISTRIBUTION WIDTH 17.3 % (11.5-14.5); WHITE BLOOD COUNT 2.1 K/uL (4.8-10.8)
[2019-01-20 17:45] LABS: BLOOD UREA NITROGEN 23 mg/dl (9-20); CALCIUM 9.3 mg/dL (8.4-10.2); GFR NON-AFRICAN AMERICAN > 60
--- NOTE | 2019-01-20 18:00 | RAD ---
Date of service: 01/20/2019 HISTORY: possible admission COMPARISON: 12/24/2017. FINDINGS: LUNGS: No active pulmonary disease. PLEURA: No significant pleural effusion identified, no pneumothorax apparent. CARDIOVASCULAR: No atherosclerotic calcification present No radiographic findings to suggest acute or significant cardiovascular disease. Venous access catheter in satisfactory position. OSSEOUS STRUCTURES: No significant abnormalities. VISUALIZED UPPER ABDOMEN: Normal. OTHER FINDINGS: None. IMPRESSION: No active disease. No significant interval change compared to the prior examination(s).
[2019-01-20 18:47] LABS: LYMPHOCYTE 16 % (20-50); MONOCYTE 23 % (0-10); NEUTROPHIL 61 % (42-75); TOTAL CELLS COUNTED 100
[2019-01-20 18:48] LABS: ANISOCYTOSIS SLIGHT; PLATELET ESTIMATE NORMAL (NORMAL)
[2019-01-20 20:16] VITALS: BP 118/62; PULSE 83; TEMP 98.9
[2019-01-20 23:35] VITALS: O2SAT 100
--- NOTE | 2019-01-21 09:05 | CARD ---
APPROVED REPORT Date of service: 01/20/2019 EKG Measurement Heart [id number] <Conclusion> Normal sinus rhythm Normal ECG
== END 2019-01-20 20:22 | disposition home or self-care (01) ==
LOC: H.ER 14:34
DX: R05 Cough (principal); R09.89 Other specified symptoms and signs involving the circulatory and respiratory systems; I12.9 Hypertensive chronic kidney disease with stage 1 through stage 4 chronic kidney disease, or unspecified chronic kidney disease; N18.9 Chronic kidney disease, unspecified; E78.00 Pure hypercholesterolemia, unspecified; Z85.01 Personal history of malignant neoplasm of esophagus

== ENCOUNTER 2019-01-29 10:34 | Observation (INO) | payer MEDICARE, OTHER ==
[2019-01-29 11:03] VITALS: BMI 20.5
[2019-01-29] MEDS ORDERED: Albuterol-Ipratrop 3 mg / 0.5 (3 ml) UD IH STA (12:25)
[2019-01-29] MEDS ORDERED: Albuterol-Ipratrop 3 mg / 0.5 (3 ml) UD INH STA (12:25)
[2019-01-29] MEDS ORDERED: Sodium Chloride 0.9% 500 ML IV STA (12:25)
--- NOTE | 2019-01-29 12:31 | ED PDOC ---
History of Present Illness History of Present Illness: 63 year old male with a past medical history of hypertension, hyperlipidemia, diabetes, and esophageal cancer who is presenting to the ED for evaluation of cough, shortness of breath, and congestion ongoing for 2 weeks. Patient states that he was seen in the ED on 01/20 for the same complaints and sent home with Zithromax which offered no relief so he saw Dr. Walker who prescribed him Augm entin. He is presenting to the ED today as symptoms persist. Patient also complains of diarrhea and reports that his last chemo session was November 18. Patient denies any fevers, chest pain, abdominal pain, nausea or vomiting. PMD: Juan Daniel Walker I HPI: Influenza Time Seen by Provider: 01/29/19 11:52 Chief Complaint: Cough, Cold, Congestion Chief Complaint (Provider): Cough, Cold, Congestion History Per: Patient, Family Exam Limitations: no limitations Onset/Duration Of Symptoms: Days (x14) Symptoms include: cough, nasal congestion, diarrhea, difficulty breathing. denies: fever, vomiting, chest pain Past Medical History Reviewed: Historical Data, Nursing Documentation, Vital Signs Vital Signs: Last Vital Signs Temp 98.1 F 01/29/19 11:01 Pulse 109 H 01/29/19 11:01 Resp 18 01/29/19 11:01 BP 107/69 01/29/19 11:01 Pulse Ox 96 01/29/19 11:01 - Medical History PMH: Diabetes, HTN, Hypercholesterolemia, Hyperlipidemia, Pancreatitis, Chronic Kidney Disease (Renal Implant 2015) Denies: Arthritis, HIV, Rheumatoid Arthritis Other PMH: esophageal ca - Surgical History Surgical History: Cholecystectomy - Family History Family History: States: Unknown Family Hx - Social History Current smoker - smoking cessation education provided: No Alcohol: None Drugs: Denies - Immunization History Hx Influenza Vaccination: Yes Hx Pneumococcal Vaccination: Yes - Home Medications Home Medications: Ambulatory Orders Medication Instructions Recorded Cholecalciferol [Vitamin D 1000 IU] 50,000 iu PO DAILY 12/24/17 Fludrocortisone Acetate 0.1 mg PO DAILY 12/24/17 Lipase/Protease/Amylase [Creon Dr 2 each PO HS 12/24/17 24,000 Units Capsule] Pantoprazole [Protonix EC Tab] 40 mg PO DAILY 12/24/17 Pregabalin [Lyrica] 100 mg PO Q8 12/24/17 Simethicone [Gas-X] 125 mg PO DAILY 12/24/17 Tacrolimus [Prograf Cap] 1 mg PO Q12 12/24/17 Tamsulosin HCl [Flomax] 0.4 mg PO DAILY 12/24/17 Triamcinolone 0.1% [Triamcinolone 0.1 drp TP BID 12/24/17 0.1% Cream] Azithromycin [Z-Juan Manuel] 250 mg PO DAILY #6 tab 01/20/19 - Allergies Allergies/Adverse Reactions: Allergies Allergy/AdvReac Type Severity Reaction Status Date / Time No Known Allergies Allergy Verified 12/24/17 16:06 Review of Systems ROS Statement: Except As Marked, All Systems Reviewed And Found Negative Constitutional: Negative for: Fever ENT: Positive for: Nose Congestion Cardiovascular: Negative for: Chest Pain Respiratory: Positive for: Cough, Shortness of Breath Gastrointestinal: Positive for: Diarrhea. Negative for: Nausea, Vomiting, Abdominal Pain Physical Exam - Reviewed Nursing Documentation Reviewed: Yes Vital Signs Reviewed: Yes - Physical Exam Appears: Positive for: Non-toxic, No Acute Distress Head Exam: Positive for: ATRAUMATIC, NORMAL INSPECTION, NORMOCEPHALIC Skin: Positive for: Normal Color, Warm, DRY Eye Exam: Positive for: EOMI, Normal appearance, PERRL ENT: Positive for: Nasal Congestion Neck: Positive for: Normal Cardiovascular/Chest: Positive for: Regular Rate, Rhythm. Negative for: Murmur Respiratory: Positive for: Other (mild coarse breath sounds ). Negative for: Respiratory Distress Gastrointestinal/Abdominal: Positive for: Normal Exam, Soft. Negative for: Tenderness Back: Positive for: Normal Inspection. Negative for: L CVA Tenderness, R CVA Tenderness Extremity: Positive for: Normal ROM. Negative for: Tenderness, Pedal Edema, Calf Tenderness, Deformity, Other Neurological/Psych: Positive for: Awake, Alert, Normal Tone, Oriented. Negative for: Motor/Sensory Deficits Medical Decision Making Medical Decision Making: Time: 12:25 Plan: --EKG --BNP --CMP --Troponin --CBC --Coags --CXR --Duoneb x2 3 ml INH --IV Fluids --Solu-Medrol 125 mg IVP --Blood Culture --Peak Flow Pre/Post TX Scribe Attestation: Documented by Ayana De La Torre, acting as a scribe for Jimmy Calderon MD. Provider Scribe Attestation: All medical record entries made by the Scribe were at my direction and personally dictated by me. I have reviewed the chart and agree that the record accurately reflects my personal performance of the history, physical exam, medical decision making, and the department course for this patient. I have also personally directed, reviewed, and agree with the discharge instructions and disposition. - Laboratory Results Result Diagrams: 01/29/19 13:06 01/29/19 13:06 Lab Results: 25 bun - ECG ECG: Positive for: Interpreted By Me ECG Rhythm: Positive for: Normal QRS, Normal ST Segment, Nonspecific Changes O2 Sat by Pulse Oximetry: 96 (RA) Pulse Ox Interpretation: Normal - Radiology X-Ray: Interpreted by Me, Viewed By De X-Ray Interpretation: No Acute Disease - Progress ED Course And Treament: 1423: Stable. AAOx3. Spoke with Dr. Walker. Will admit for asthma exacerbation. Feels better, but needs further monitoring. Disposition - Clinical Impression Clinical Impression: Asthma exacerbation - Patient ED Disposition Is Patient to be Admitted: Yes Counseled Patient/Family Regarding: Studies Performed, Diagnosis - Disposition Disposition Time: 12:37 Condition: FAIR - Pt Status Changed To: Hospital Disposition Of: Observation - POA Present On Arrival: None
[2019-01-29 13:16] LABS: BASO % 0.3 % (0.0-2.0); EOS % 0.8 % (0.0-4.0); HEMOGLOBIN 11.5 g/dL (12.0-18.0); LYMPH # 0.4 K/uL (1.0-4.3); LYMPH % 11.3 % (20.0-40.0); MEAN CELL VOLUME 101.2 fl (80.0-94.0); MEAN CORPUSCULAR HEMOGLOBIN 33.4 pg (27.0-31.0); MEAN PLATELET VOLUME 9.2 fl (7.2-11.7); MONO # 0.7 K/uL (0.0-0.8); MONO % 21.4 % (0.0-10.0); NEUT # 2.3 K/uL (1.8-7.0); NEUT % 66.2 % (50.0-75.0); NRBC % 0.1 % (0.0-0.0); PLATELET COUNT 251 K/uL (130-400); RBC 3.43 Mil/uL (4.40-5.90); RED CELL DISTRIBUTION WIDTH 16.6 % (11.5-14.5); WHITE BLOOD COUNT 3.5 K/uL (4.8-10.8)
[2019-01-29] MEDS ORDERED: Albuterol-Ipratrop 3 mg / 0.5 (3 ml) UD ONE ×2 (13:22→13:24)
[2019-01-29 13:25] LABS: INR 1.1; PROTHROMBIN TIME 12.6 Seconds (9.8-13.1)
[2019-01-29 13:27] LABS: PARTIAL THROMBOPLASTIN TIME 26.9 Seconds (25.6-37.1)
[2019-01-29 13:28] LABS: ALB/GLOB RATIO 1.2 (1.0-2.1); ALBUMIN 3.7 g/dL (3.5-5.0); ALT/SGPT 23 U/L (21-72); AST/SGOT 20 U/L (17-59); BLOOD UREA NITROGEN 25 mg/dl (9-20); CALCIUM 9.7 mg/dL (8.4-10.2); GFR NON-AFRICAN AMERICAN > 60
[2019-01-29 13:40] LABS: B-TYPE NATRIURETIC PEPTIDE 132 pg/ml (0-900)
[2019-01-29 14:58] LABS: ANISOCYTOSIS SLIGHT; BANDS 2 % (0-2); EOSINOPHIL 1 % (0-7); HYPOCHROMIC SLIGHT; LYMPHOCYTE 8 % (20-50); MONOCYTE 16 % (0-10); NEUTROPHIL 73 % (42-75); PLATELET ESTIMATE NORMAL (NORMAL); TOTAL CELLS COUNTED 100
--- NOTE | 2019-01-29 15:01 | RAD ---
Date of service: 01/29/2019 HISTORY: Dyspnea COMPARISON: Comparison chest dated lith 01/20/2019. FINDINGS: Redemonstrated is in situ right IJ MediPort tip in the SVC. LUNGS: No acute consolidation. There may be some minimal linear scarring-fibrosis both lung apices. PLEURA: No significant pleural effusion identified, no pneumothorax apparent. CARDIOVASCULAR: No aortic atherosclerotic calcification present. Normal cardiac size. No pulmonary vascular congestion. OSSEOUS STRUCTURES: No significant abnormalities. VISUALIZED UPPER ABDOMEN: In situ PEG tube.. Cholecystectomy clips. OTHER FINDINGS: None. IMPRESSION: No acute consolidation. Questionable minimal linear scarring/fibrosis both lung apices
--- NOTE | 2019-01-29 17:27 | CARD ---
APPROVED REPORT Date of service: 01/29/2019 EKG Measurement Heart [id number] <Conclusion> Normal sinus rhythm Normal Electrocardiogram
[2019-01-29] MEDS ORDERED: Insulin Regular 100 units/ml SC STA (21:07)
[2019-01-29] MEDS ORDERED: oxyCODONE 5 mg Immediate Release Tab PO PRN (22:01)
[2019-01-29] MEDS ORDERED: Acetaminophen 650mg/20.3ml solution UD PO PRN (22:15)
[2019-01-29] MEDS ORDERED: Insulin Regular 100 units/ml SC SCH (22:30)
[2019-01-29] MEDS: Insulin Lispro (humaLOG) 100 Units/ml Inj SC SCH (23:00)
[2019-01-29] MEDS: Insulin Detemir 100 Units/ml Inj SC SCH (23:09)
[2019-01-29] MEDS ORDERED: Insulin Lispro (humaLOG) 100 Units/ml Inj SC STA (23:16)
[2019-01-29] MEDS: Azithromycin 500 MG in Sodium Chloride 0.9% 250 ML IVPB SCH (23:17)
[2019-01-29] MEDS: MYCOPHENOLIC ACID 360 MG PO SCH (23:51)
[2019-01-30] MEDS ORDERED: methylPREDNISolone 40 MG in Sodium Chloride 0.9% 50 ML IV SCH (01:00)
[2019-01-30] MEDS ORDERED: MethylPREDNISolone 40 mg Vial IVP SCH (01:00)
[2019-01-30] MEDS ORDERED: Insulin Lispro (humaLOG) 100 Units/ml Inj SC STA (01:35)
[2019-01-30] MEDS: Albuterol-Ipratrop 3 mg / 0.5 (3 ml) UD INH SCH ×4 (01:40→19:11)
[2019-01-30] MEDS ORDERED: Influenza Vaccine 60 mcg/0.5 mL SYR (4YR UP) IM ONE (03:45)
[2019-01-30] MEDS ORDERED: Influenza Vaccine (5 YR UP)/PF 60 MCG/0.5 ML SYR IM ONE (06:30)
[2019-01-30 06:44] LABS: BLOOD UREA NITROGEN 28 mg/dl (9-20); CALCIUM 10.1 mg/dL (8.4-10.2); GFR NON-AFRICAN AMERICAN > 60
[2019-01-30] MEDS: Insulin Lispro (humaLOG) 100 Units/ml Inj SC SCH ×7 (06:46→22:05)
[2019-01-30] MEDS ORDERED: Insulin Regular 100 units/ml SC SCH (07:30)
--- NOTE | 2019-01-30 08:47 | CP.PCM.HP ---
History of Present Illness - History of Present Illness History of Present Illness: 63 YR OLD MALE ADMITTED VIA THE ER BECAUSE OF COUGH WITH SHORTNESS OF BREATH X 2 WEEKS.HE WAS SEEN IN THE ER AND OFFICE,TREATED WITH ORAL ANTIBIOTICS BUT SYMPTOMS ONLY WORSENED.HE DENIES CHEST PAINS BUT HAS EXERCISE INTOLERANCE. HX OF DM,HTN,HYPERLIPIDEMIA,ESRD--S/P RECENT RENAL TRANSPLANT AND ESOPHAGEAL CANCER WITH RECENT PEG PLACEMENT. Present on Admission - Present on Admission Any Indicators Present on Admission: No Past Patient History - Infectious Disease Hx of Infectious Diseases: None - Past Medical History & Family History Past Medical History?: Yes - Past Social History Smoking Status: Never Smoked - CARDIAC Hx Hypercholesterolemia: Yes Hx Hypertension: Yes - PULMONARY Hx Respiratory Disorders: No - NEUROLOGICAL Hx Neurological Disorder: No HX Cerebrovascular Accident: No - HEENT Hx HEENT Problems: No - RENAL Hx Chronic Kidney Disease: Yes (Renal Implant 2015) - ENDOCRINE/METABOLIC Hx Endocrine Disorders: Yes Hx Diabetes Mellitus Type 1: Yes - HEMATOLOGICAL/ONCOLOGICAL Hx Cancer: Yes (Esophageal Ca) Hx Chemotherapy: Yes Hx Human Immunodeficiency Virus (HIV): No - INTEGUMENTARY Hx Dermatological Problems: No - MUSCULOSKELETAL/RHEUMATOLOGICAL Hx Falls: Yes - GASTROINTESTINAL Hx Pancreatitis: Yes - GENITOURINARY/GYNECOLOGICAL Hx Genitourinary Disorders: No - PSYCHIATRIC Hx Substance Use: No - SURGICAL HISTORY Hx Cholecystectomy: Yes - ANESTHESIA Hx Anesthesia: Yes Hx Anesthesia Reactions: No Hx Malignant Hyperthermia: No Meds Allergies/Adverse Reactions: Allergies Allergy/AdvReac Type Severity Reaction Status Date / Time No Known Allergies Allergy Verified 12/24/17 16:06 Physical Exam - Constitutional Appears: Cachectic, Chronically Ill - Head Exam Head Exam: ATRAUMATIC, NORMAL INSPECTION, NORMOCEPHALIC - Eye Exam Eye Exam: EOMI, Normal appearance, PERRL Pupil Exam: NORMAL ACCOMODATION, PERRL - ENT Exam ENT Exam: Mucous Membranes Moist, Normal Exam - Neck Exam Neck exam: Positive for: Normal Inspection - Respiratory Exam Respiratory Exam: Decreased Breath Sounds, Prolonged Expiratory Phase, Rales, NORMAL BREATHING PATTERN - Cardiovascular Exam Cardiovascular Exam: REGULAR RHYTHM - GI/Abdominal Exam GI & Abdominal Exam: Normal Bowel Sounds, Soft. absent: Tenderness Additional comments: PEG IN PLACE - Rectal Exam Rectal Exam: NORMAL INSPECTION - Extremities Exam Extremities exam: Positive for: normal inspection - Back Exam Back exam: NORMAL INSPECTION - Neurological Exam Neurological exam: Alert, CN II-XII Intact, Normal Gait, Oriented x3, Reflexes Normal - Psychiatric Exam Psychiatric exam: Normal Affect, Normal Mood - Skin Skin Exam: Dry, Intact, Normal Color, Warm Results - Vital Signs Recent Vital Signs: Last Vital Signs Temp 97.7 F 01/30/19 08:04 Pulse 91 H 01/30/19 08:04 Resp 18 01/30/19 08:04 BP 122/69 01/30/19 08:04 Pulse Ox 94 L 01/30/19 08:04 - Labs Result Diagrams: 01/29/19 13:06 01/30/19 04:20 Labs: Laboratory Results - last 24 hr 01/29/19 01/29/19 01/29/19 13:06 13:06 13:06 WBC 3.5 L D RBC 3.43 L Hgb 11.5 L Hct 34.7 L MCV 101.2 H MCH 33.4 H MCHC 33.0 RDW 16.6 H Plt Count 251 MPV 9.2 Neut % (Auto) 66.2 Lymph % (Auto) 11.3 L [place] % (Auto) 21.4 H Eos % (Auto) 0.8 Baso % (Auto) 0.3 Neut # (Auto) 2.3 Lymph # (Auto) 0.4 L [place] # (Auto) 0.7 Eos # (Auto) 0.0 Baso # (Auto) 0.0 Neutrophils % (Manual) 73 Band Neutrophils % 2 Lymphocytes % (Manual) 8 L Monocytes % (Manual) 16 H Eosinophils % (Manual) 1 Platelet Estimate Normal Hypochromasia (manual) Slight Anisocytosis (manual) Slight Macrocytosis (manual) Slight PT 12.6 INR 1.1 APTT 26.9 Sodium 138 Potassium 4.5 Chloride 105 Carbon Dioxide 25 Anion Gap 13 BUN 25 H Creatinine 0.8 Est GFR ( Amer) > 60 Est GFR (Non-Af Amer) > 60 POC Glucose (mg/dL) Random Glucose 312 H Calcium 9.7 Total Bilirubin 0.3 AST 20 ALT 23 Alkaline Phosphatase 116 Troponin I < 0.0120 NT-Pro-B Natriuret Pep 132 Total Protein 6.7 Albumin 3.7 Globulin 3.0 Albumin/Globulin Ratio 1.2 01/29/19 01/29/19 01/30/19 20:56 22:18 01:16 WBC RBC Hgb Hct MCV MCH MCHC RDW Plt Count MPV Neut % (Auto) Lymph % (Auto) [place] % (Auto) Eos % (Auto) Baso % (Auto) Neut # (Auto) Lymph # (Auto) [place] # (Auto) Eos # (Auto) Baso # (Auto) Neutrophils % (Manual) Band Neutrophils % Lymphocytes % (Manual) Monocytes % (Manual) Eosinophils % (Manual) Platelet Estimate Hypochromasia (manual) Anisocytosis (manual) Macrocytosis (manual) PT INR APTT Sodium Potassium Chloride Carbon Dioxide Anion Gap BUN Creatinine Est GFR ( Amer) Est GFR (Non-Af Amer) POC Glucose (mg/dL) > 500 H* > 500 H* 406 H* Random Glucose Calcium Total Bilirubin AST ALT Alkaline Phosphatase Troponin I NT-Pro-B Natriuret Pep Total Protein Albumin Globulin Albumin/Globulin Ratio 01/30/19 01/30/19 04:20 05:25 WBC RBC Hgb Hct MCV MCH MCHC RDW Plt Count MPV Neut % (Auto) Lymph % (Auto) [place] % (Auto) Eos % (Auto) Baso % (Auto) Neut # (Auto) Lymph # (Auto) [place] # (Auto) Eos # (Auto) Baso # (Auto) Neutrophils % (Manual) Band Neutrophils % Lymphocytes % (Manual) Monocytes % (Manual) Eosinophils % (Manual) Platelet Estimate Hypochromasia (manual) Anisocytosis (manual) Macrocytosis (manual) PT INR APTT Sodium 142 Potassium 4.1 Chloride 106 Carbon Dioxide 25 Anion Gap 15 BUN 28 H Creatinine 0.8 Est GFR ( Amer) > 60 Est GFR (Non-Af Amer) > 60 POC Glucose (mg/dL) 229 H Random Glucose 236 H Calcium 10.1 Total Bilirubin AST ALT Alkaline Phosphatase Troponin I NT-Pro-B Natriuret Pep Total Protein Albumin Globulin Albumin/Globulin Ratio Assessment & Plan - Assessment and Plan (Free Text) Assessment: ACUTE ASTHMA URI UNCONTROLLED DM HTN ESOPHAGEAL CANCER S/P RENAL TRANSPLANT [place] Plan: CONTINUE RX ORDERED D/C HOME IN AM IF STABLE - Date & Time Date: 01/30/19 Time: 08:50
[2019-01-30] MEDS ORDERED: Sodium Chloride 3% for Inhalation 4 ML VIAL.NEB IH PRN (08:51)
[2019-01-30] MEDS ORDERED: MYCOPHENOLIC ACID 360 MG PO SCH (09:00)
[2019-01-30] MEDS: Amylase/Lipase/Protease 5,000 Units ECC PO SCH ×2 (09:24→13:30)
[2019-01-30] MEDS: MYCOPHENOLIC ACID 360 MG PO SCH ×2 (09:25→21:48)
[2019-01-30] MEDS: MethylPREDNISolone 40 mg Vial IVP SCH (09:26)
[2019-01-30] MEDS: Pantoprazole 40 mg EC Tab PO SCH (09:26)
[2019-01-30] MEDS ORDERED: Amylase/Lipase/Protease 5,000 Units ECC PO SCH (16:30)
[2019-01-30] MEDS: [UNRECOGNIZED DRUG - OTHER] PO SCH (17:29)
[2019-01-30] MEDS: Insulin Detemir 100 Units/ml Inj SC SCH (21:50)
[2019-01-30] MEDS: Azithromycin 500 MG in Sodium Chloride 0.9% 250 ML IVPB SCH (22:03)
[2019-01-30] MEDS ORDERED: Azithromycin 500 MG in Sodium Chloride 0.9% 250 ML IVPB SCH (22:12)
[2019-01-31] MEDS: Albuterol-Ipratrop 3 mg / 0.5 (3 ml) UD INH SCH ×3 (01:00→13:14)
[2019-01-31] MEDS: Insulin Lispro (humaLOG) 100 Units/ml Inj SC SCH ×4 (06:40→13:56)
[2019-01-31] MEDS: [UNRECOGNIZED DRUG - OTHER] PO SCH ×2 (09:06→15:16)
[2019-01-31] MEDS: MYCOPHENOLIC ACID 360 MG PO SCH (09:08)
[2019-01-31] MEDS: Pantoprazole 40 mg EC Tab PO SCH (09:10)
[2019-01-31] MEDS: MethylPREDNISolone 40 mg Vial IVP SCH (09:10)
[2019-01-31 12:01] VITALS: TEMP 98.1
[2019-01-31] MEDS ORDERED: Insulin Regular 100 units/ml SC STA (13:37)
[2019-01-31] MEDS ORDERED: Promethazine DM 12.5 mg-30 mg/10 ml Syrup PO ONE (13:39)
--- NOTE | 2019-01-31 13:55 | CP.PCM.DIS ---
Provider - Provider Date of Admission: 01/29/19 14:25 Attending physician: Juan Daniel Walker MD Time Spent in preparation of Discharge (in minutes): 30 Diagnosis - Discharge Diagnosis (1) Asthma exacerbation Status: Acute (2) Chest congestion Status: Acute (3) Cough Status: Acute (4) Diabetes mellitus Status: Acute (5) Hypertension Status: Acute (6) Peripheral neuropathy Status: Acute (7) Renal transplant recipient Status: Acute (8) Vertigo Status: Acute Hospital Course - Lab Results Lab Results: Micro Results 01/29/19 13:06 Blood Blood Culture - Preliminary NO GROWTH AFTER 48 HOURS 01/29/19 13:33 Blood Blood Culture - Preliminary NO GROWTH AFTER 24 HOURS Most Recent Lab Values WBC 3.5 K/uL (4.8-10.8) L D 01/29/19 13:06 RBC 3.43 Mil/uL (4.40-5.90) L 01/29/19 13:06 Hgb 11.5 g/dL (12.0-18.0) L 01/29/19 13:06 Hct 34.7 % (35.0-51.0) L 01/29/19 13:06 MCV 101.2 fl (80.0-94.0) H 01/29/19 13:06 MCH 33.4 pg (27.0-31.0) H 01/29/19 13:06 MCHC 33.0 g/dL (33.0-37.0) 01/29/19 13:06 RDW 16.6 % (11.5-14.5) H 01/29/19 13:06 Plt Count 251 K/uL (130-400) 01/29/19 13:06 MPV 9.2 fl (7.2-11.7) 01/29/19 13:06 Neut % (Auto) 66.2 % (50.0-75.0) 01/29/19 13:06 Lymph % (Auto) 11.3 % (20.0-40.0) L 01/29/19 13:06 [place] % (Auto) 21.4 % (0.0-10.0) H 01/29/19 13:06 Eos % (Auto) 0.8 % (0.0-4.0) 01/29/19 13:06 Baso % (Auto) 0.3 % (0.0-2.0) 01/29/19 13:06 Neut # (Auto) 2.3 K/uL (1.8-7.0) 01/29/19 13:06 Lymph # (Auto) 0.4 K/uL (1.0-4.3) L 01/29/19 13:06 [place] # (Auto) 0.7 K/uL (0.0-0.8) 01/29/19 13:06 Eos # (Auto) 0.0 K/uL (0.0-0.7) 01/29/19 13:06 Baso # (Auto) 0.0 K/uL (0.0-0.2) 01/29/19 13:06 Neutrophils % (Manual) 73 % (42-75) 01/29/19 13:06 Band Neutrophils % 2 % (0-2) 01/29/19 13:06 Lymphocytes % (Manual) 8 % (20-50) L 01/29/19 13:06 Monocytes % (Manual) 16 % (0-10) H 01/29/19 13:06 Eosinophils % (Manual) 1 % (0-7) 01/29/19 13:06 Platelet Estimate Normal (NORMAL) 01/29/19 13:06 Hypochromasia (manual) Slight 01/29/19 13:06 Anisocytosis (manual) Slight 01/29/19 13:06 Macrocytosis (manual) Slight 01/29/19 13:06 PT 12.6 Seconds (9.8-13.1) 01/29/19 13:06 INR 1.1 01/29/19 13:06 APTT 26.9 Seconds (25.6-37.1) 01/29/19 13:06 Sodium 142 mmol/l (132-148) 01/30/19 04:20 Potassium 4.1 MMOL/L (3.6-5.0) 01/30/19 04:20 Chloride 106 mmol/L (98-107) 01/30/19 04:20 Carbon Dioxide 25 mmol/L (22-30) 01/30/19 04:20 Anion Gap 15 (10-20) 01/30/19 04:20 BUN 28 mg/dl (9-20) H 01/30/19 04:20 Creatinine 0.8 mg/dl (0.8-1.5) 01/30/19 04:20 Est GFR ( Amer) > 60 01/30/19 04:20 Est GFR (Non-Af Amer) > 60 01/30/19 04:20 POC Glucose (mg/dL) 403 mg/dL (65-110) H* 01/31/19 05:04 Random Glucose 236 mg/dL (75-110) H 01/30/19 04:20 Calcium 10.1 mg/dL (8.4-10.2) 01/30/19 04:20 Total Bilirubin 0.3 mg/dl (0.2-1.3) 01/29/19 13:06 AST 20 U/L (17-59) 01/29/19 13:06 ALT 23 U/L (21-72) 01/29/19 13:06 Alkaline Phosphatase 116 U/L (38-126) 01/29/19 13:06 Troponin I < 0.0120 ng/mL (0.00-0.120) 01/29/19 13:06 NT-Pro-B Natriuret Pep 132 pg/ml (0-900) 01/29/19 13:06 Total Protein 6.7 G/DL (6.3-8.2) 01/29/19 13:06 Albumin 3.7 g/dL (3.5-5.0) 01/29/19 13:06 Globulin 3.0 gm/dL (2.2-3.9) 01/29/19 13:06 Albumin/Globulin Ratio 1.2 (1.0-2.1) 01/29/19 13:06 - Hospital Course Hospital Course: SOB AND CHEST CONGESTION IMPROVED SYMPTOMS MAY BE DUE TO MICROASPIRATION FROM ESOPHAGEAL CANCER Discharge Exam - Head Exam Head Exam: ATRAUMATIC, NORMAL INSPECTION, NORMOCEPHALIC - Eye Exam Eye Exam: EOMI, Normal appearance, PERRL Pupil Exam: NORMAL ACCOMODATION, PERRL - Respiratory Exam Respiratory Exam: NORMAL BREATHING PATTERN - GI/Abdominal Exam GI & Abdominal Exam: Normal Bowel Sounds Additional comments: PEG IN PLACE - Rectal Exam Rectal Exam: NORMAL INSPECTION - Neurological Exam Neurological exam: Alert, CN II-XII Intact, Normal Gait, Oriented x3, Reflexes Normal - Psychiatric Exam Psychiatric exam: Normal Affect, Normal Mood - Skin Skin Exam: Dry, Intact, Normal Color, Warm Discharge Plan - Follow Up Plan Condition: FAIR Disposition: HOME/ ROUTINE Additional Instructions: DISCHARGE TODAY ON LEVAQUIN,PHENERGAN DM AND NEBULIZED ALBUTEROL FOLLOW UP IN [facility] IN 1 WEEK
[2019-01-31 15:41] VITALS: BP 110/67; PULSE 103; RESP 20; O2SAT 100
== END 2019-01-31 16:30 | disposition home or self-care (01) ==
LOC: H.ER 10:34 → H.ERHOLD 14:25 → H.TEL 21:39
PROVIDERS: ADMIT Internal Medicine Pulmonary Disease; ATTEND Internal Medicine Pulmonary Disease
DX: J45.901 Unspecified asthma with (acute) exacerbation (principal); C15.9 Malignant neoplasm of esophagus, unspecified; N18.6 End stage renal disease; Z94.0 Kidney transplant status; R64 Cachexia; I12.0 Hypertensive chronic kidney disease with stage 5 chronic kidney disease or end stage renal disease; E11.22 Type 2 diabetes mellitus with diabetic chronic kidney disease; E11.65 Type 2 diabetes mellitus with hyperglycemia; E11.42 Type 2 diabetes mellitus with diabetic polyneuropathy; E78.5 Hyperlipidemia, unspecified; E78.00 Pure hypercholesterolemia, unspecified; Z93.1 Gastrostomy status; Z23 Encounter for immunization; Z79.4 Long term (current) use of insulin; Z92.21 Personal history of antineoplastic chemotherapy
CPT/HCPCS: 36415; 71045; 80048; 80053; 82948; 83880; 84484; 85025; 85610; 85730; 87040; 90674; 93005; 94640; 96372; 96374; 99285; G0008; G0378; J0456; J2920; J2930; J7040; J7050; J7507